=== PATIENT | male | born 1950 | race Caucasian/White ===

== ENCOUNTER 2023-09-05 15:14 | Emergency (ER) | payer OTHER, SELFPAY ==
[2023-09-05] VITALS (10 sets, daily range): BP systolic 168–199; BP diastolic 86–113
[2023-09-05 15:44] LABS: % Basophils 0.9 % (0-2); % Eosinophils 3.2 % (0-6); % Immature Granulocytes 0.3 % (0-0.5); % Lymphocytes 20.8 % (20.5-51.1); % Monocytes 6.1 % (1.7-9.3); % Neutrophils 68.7 % (42.2-75.2); Absolute Basophils 0.1 10^3/uL (0-0.2); Absolute Eosinophils 0.3 10^3/uL (0-0.7); Absolute Lymphocytes 2.1 10^3/uL (1.2-3.4); Absolute Monocytes 0.6 10^3/uL (0.1-0.6); Absolute Neutrophils 7.1 10^3/uL (1.4-6.5); Hematocrit 44.3 % (39.0-52.0); Hemoglobin 15.2 g/dL (13.0-18.0); Mean Corp Hgb Conc. 34.3 g/dL (33.0-37.0); Mean Corpuscular Hgb 30.3 pg (27.0-31.0); Mean Corpuscular Volume 88.4 fL (80.0-94.0); Mean Platelet Volume 9.5 fL (7.4-10.4); Nucleated Red Blood Cells % 0 % (-); Platelet Count 181 10^3/uL (130-400); Red Blood Cell Count 5.01 10^6/uL (4.70-6.10); Red Cell Dist. Width 12.5 % (11.5-14.5); White Blood Cell Count 10.3 10^3/uL (4.8-10.8)
[2023-09-05 15:58] LABS: ALT (SGPT) 17 U/L (0-50); AST (SGOT) 23 U/L (17-59); Albumin 4.2 g/dl (3.5-5.0); Alkaline Phosphatase 103 U/L (38-126); Blood Urea Nitrogen 34 mg/dl (9-20); Calcium 9.4 mg/dl (8.4-10.2); Carbon Dioxide 22 mmol/L (22-30); Chloride 109 mmol/L (98-107); Glucose 103 mg/dl (70-99); Potassium 4.4 mmol/L (3.5-5.1); Sodium 140 mmol/L (135-145); Total Bilirubin 0.7 mg/dl (0.2-1.3); Total Protein 6.9 g/dl (6.3-8.2); eGFR 57.65
[2023-09-05 16:09] LABS: Troponin I < 0.012 ng/ml
--- NOTE | 2023-09-05 16:09 | ED.GENMED ---
History of Present Illness
General
Chief Complaint: Blood Pressure Problem
Source: patient and family
Exam Limitations: none
Time Seen by Provider: 09/05/23 15:57
Nursing documentation reviewed up to this point in time: agreed with
History of Present Illness
History of Present Illness:
Healthy 73-year-old male presents with nausea vomiting pain behind the right eye was outside building some furniture around 8 AM developed symptoms went inside to sleep, had some nausea vomiting blood pressure was elevated previously told he had
hypertension then told he did not currently on meds, no arm or leg weakness no slurred speech, it is very hot today the patient states he was in the very long, no arm or leg weakness, states his vision is a bit blurry
Past History
Past History
ED Past Medical History: None and Other (Kidney stones)
ED Past Surgical History: None
Social History
Tobacco: Non-smoker
Alcohol: None
Drug: None
Personal:
Living: with family
Review of Systems
Review of Systems
All Other Systems: ROS reviewed and negative except as documented in HPI and ROS
EENT: Reports no symptoms
Respiratory: Reports no symptoms
Cardiac: Reports no symptoms
ABD/GI: Reports nausea and vomiting
Neurological: Reports other (Pain behind the right eye)
Phy Exam
Physical Exam
Physical Exam:
Physical Exam
General: no apparent distress, not acutely ill
Neck: No jaundice no photophobia
Heart: s1/s2 regular rate and rhythm, no murmur. equal radial pulses.
Lungs: no acute respiratory distress. clear bilaterally
Abdomen: Nontender
Neuro: alert and oriented. no focal neurological deficits normal [id number] muscle strength 5 out of 5 clear thought process clear speech
Skin: no rash
Psychiatric: well kept. interactive and cooperative
Extremities: no edema.
Course
Orders/Labs/Results
Orders:
Orders
09/05/23 15:34
CT Head W/o Iv Contrast Urgent
Comment:
Reason For Exam: hypertension
09/05/23 15:37
Complete Blood Count/With Diff Urgent
Comprehensive Metabolic Panel Urgent
Erythrocyte Sed Rate Urgent
Comment: ADD ON
Troponin I Urgent
09/05/23 16:03
0.9% Sodium Chloride 1000 ml [Nss] 1,000 ml IV BOLUS
Ondansetron Injectable [Zofran] 4 mg IV NOW STA
09/05/23 16:10
Add On- LAB Urgent
Tests Added?: esr
09/05/23 16:41
HydrALAZINE [Apresoline] 10 mg IV NOW STA
09/05/23 17:04
Tetracaine HCl [Tetracaine 0.5% Ophthalmic Solution] 1 drop .ROUTE .STK-MED ONE
09/05/23 17:38
Ketorolac [Toradol] 30 mg IV NOW STA
09/05/23 18:39
Acetaminophen [Tylenol] 650 mg PO NOW STA
Metoclopramide [Reglan] 10 mg IV NOW STA
09/05/23 19:45
Amlodipine [Norvasc] 5 mg PO NOW STA
Abnormal Lab Results
09/05/23
15:37
Absolute Neuts (auto) 7.1 H 10^3/uL
(1.4-6.5)
Chloride 109 H mmol/L
(98-107)
BUN 34 H mg/dl
(9-20)
Glucose 103 H mg/dl
(70-99)
09/05/23 15:37
09/05/23 15:37
Vital Signs
Initial and Last Documented VS:
Initial Vital Signs
Temp Pulse Resp BP Pulse Ox
98.9 F 66 18 189/113 97
09/05/23 15:16 09/05/23 15:16 09/05/23 15:16 09/05/23 15:16 09/05/23 15:16
Last Documented Vital Signs
Temp Pulse Resp BP Pulse Ox
98.9 F 63 10 182/103 98
09/05/23 15:16 09/05/23 18:30 09/05/23 18:30 09/05/23 18:30 09/05/23 18:30
MDM/Problems Addressed
Differential Diagnosis Includes:
Heat exhaustion, ocular migraine, acute glaucoma intracerebral hemorrhage migraine
MDM/Problems Addressed:
Pain behind the eye with nausea
*Critical Care Note
Total Time (30-74mins, 75-104mins- exclusive of procedures): Not Applicable
Update Note
Update Note:
Update, CT and labs noted will check intraocular pressure
IOP 16 on the left 18 on the right
5:40 PM patient feeling better blood pressure improved drinking some ice water still having some pain behind his will try some Toradol patient and daughter updated
6:30 PM did offer the patient admission states he like to go home with possible outpatient follow-up
7:45 PM patient resting comfortably blood pressure modestly elevated we will start with calcium channel arline medically cleared instructed to return to the ER for worsening symptoms he will stay out of the heat take a few days off, he does admit
that he was outside working for few hours
ED Attending Note
-
Portions of this chart may have been created with voice recognition software.� Occasional wrong word or��sound alike� substitutions may have occurred due to the inherent limitations of voice recognition software.
Discharge Plan
Departure
Patient Disposition: Home (Routine Discharge)
Date of Disposition: 09/05/23
Time of Disposition: 19:46
Patient with high blood pressure during this ER visit?: Yes
Condition: Good
Discharge Problem:
Vomiting, Headache
Instructions: High Blood Pressure (DC), Acute Nausea and Vomiting
Prescriptions:
New
metoclopramide HCl [Reglan] 10 mg tablet
10 mg PO Q8HPRN PRN (Reason: nausea and vomiting) Qty: 10 0RF
amlodipine [Norvasc] 5 mg tablet
5 mg PO DAILY Qty: 30 2RF
No Action
cyclobenzaprine 10 mg tablet
10 mg PO TID PRN (Reason: muscle spasm) Qty: 14 0RF
Referrals:
Will Houston I., DO [Family Provider] -
Interventions
Interventions:
*Risk Screen - Suicide Last Done: 09/05/23 16:06
*General Assessment Last Done: 09/05/23 16:06
*Neglect/Abuse Screening Last Done: 09/05/23 16:06
ED- Cardiac Assessment Last Done: 09/05/23 16:06
ED- Neurological Assessment Last Done: 09/05/23 16:06
ED- Pulmonary Assessment Last Done: 09/05/23 16:06
Discharge Date and Time
Print Language: LAO
[2023-09-05] MEDS: ZOFRAN 4 MG IV (16:15)
[2023-09-05] MEDS: NSS 1000 IV (16:15)
[2023-09-05 16:26] LABS: Erythrocyte Sed Rate 3 mm/hour (0-20)
[2023-09-05] MEDS: APRESOLINE 10 MG IV (16:46)
[2023-09-05] MEDS: TORADOL 30 MG IV (17:54)
[2023-09-05] MEDS: TYLENOL 650 MG PO (18:43)
[2023-09-05] MEDS: REGLAN 10 MG IV (18:43)
[2023-09-05] MEDS: NORVASC 5 MG PO (20:04)
[2023-09-05] MEDS: ZOFRAN ODT (ORALLY DISINTEGRATING) 4 MG PO (20:16)
== END 2023-09-05 20:25 | disposition home or self-care (01) ==
LOC: EMR 15:14
PROVIDERS: EMERGENCY PHYSICIAN Emergency Medicine; FAMILY PHYSICIAN Internal Medicine
DX: R11.2 Nausea with vomiting, unspecified (principal); R51.9 Headache, unspecified; I10 Essential (primary) hypertension; Z86.73 Personal history of transient ischemic attack (TIA), and cerebral infarction without residual deficits; Z87.442 Personal history of urinary calculi
CPT/HCPCS: 99284; 96374; 96375; 96361; 70450; 80053; 84484; 85025; 85652

== ENCOUNTER 2023-09-07 15:19 | Inpatient (IN) | payer OTHER, SELFPAY ==
[2023-09-07] VITALS (10 sets, daily range): BP systolic 154–197; BP diastolic 86–113; BMI 25.3
[2023-09-07 11:34] LABS: % Basophils 0.4 % (0-2); % Eosinophils 0.7 % (0-6); % Immature Granulocytes 0.3 % (0-0.5); % Lymphocytes 12.9 % (20.5-51.1); % Monocytes 6.4 % (1.7-9.3); % Neutrophils 79.3 % (42.2-75.2); Absolute Basophils 0.1 10^3/uL (0-0.2); Absolute Eosinophils 0.1 10^3/uL (0-0.7); Absolute Lymphocytes 1.8 10^3/uL (1.2-3.4); Absolute Monocytes 0.9 10^3/uL (0.1-0.6); Absolute Neutrophils 10.8 10^3/uL (1.4-6.5); Hematocrit 48.8 % (39.0-52.0); Hemoglobin 16.6 g/dL (13.0-18.0); Mean Corpuscular Hgb 30.2 pg (27.0-31.0); Mean Corpuscular Volume 88.7 fL (80.0-94.0); Mean Platelet Volume 9.4 fL (7.4-10.4); Nucleated Red Blood Cells % 0 % (-); Platelet Count 202 10^3/uL (130-400); Red Cell Dist. Width 12.2 % (11.5-14.5); White Blood Cell Count 13.6 10^3/uL (4.8-10.8)
[2023-09-07 11:49] LABS: ALT (SGPT) 18 U/L (0-50); AST (SGOT) 28 U/L (17-59); Albumin 4.7 g/dl (3.5-5.0); Alkaline Phosphatase 108 U/L (38-126); Blood Urea Nitrogen 21 mg/dl (9-20); Carbon Dioxide 22 mmol/L (22-30); Chloride 104 mmol/L (98-107); Glucose 102 mg/dl (70-99); Potassium 4.1 mmol/L (3.5-5.1); Sodium 138 mmol/L (135-145); Total Bilirubin 1.2 mg/dl (0.2-1.3); Total Protein 7.4 g/dl (6.3-8.2); eGFR > 60.00
--- NOTE | 2023-09-07 11:55 | ED.GENMED ---
History of Present Illness
General
Chief Complaint: Blood Pressure Problem
Source: patient
Exam Limitations: none
Time Seen by Provider: 09/07/23 11:44
Nursing documentation reviewed up to this point in time: agreed with
History of Present Illness
History of Present Illness:
Patient presents to ED secondary to persistent right-sided headache, along with dizziness, nausea/vomiting/diarrhea, as well as peripheral blurriness, as well as difficulty walking over the past 3 days. Patient was evaluated in ED at onset of his
symptoms, and was discharged home with a blood pressure medication, as he was noted to have significant elevated blood pressure. However, since being home, patient states that his symptoms have persisted. Secondary to symptoms, he has not been
able to keep anything down over the past 24 hours. Denies loss of sensation or weakness. Denies difficulty with speech. Denies coughing. Denies sore throat. Denies nasal congestion. Of note, patient and his spouse went out to dinner the night
before, where they both had lobster as part of your dinner. Patient and spouse is currently also experiencing vomiting and diarrhea since then.
Past History
Past History
ED Past Medical History: None and Other (Kidney stones)
ED Past Surgical History: None
Social History
Tobacco: Non-smoker
Alcohol: None
Drug: None
Personal:
Living: with family
Review of Systems
Review of Systems
Allergies reviewed?: Yes
All Other Systems: ROS reviewed and negative except as documented in HPI and ROS
Constitutional: Reports no symptoms
EENT: Reports no symptoms
Respiratory: Reports no symptoms
ABD/GI: Reports nausea, vomiting and diarrhea; Denies abdominal pain
: Reports no symptoms
Musculoskeletal: Reports no symptoms
Skin: Reports no symptoms
Neurological: Reports dizzy, headache and weakness
Phy Exam
Physical Exam
Physical Exam:
Physical Exam
General: mild distress, not acutely ill. afebrile
Head: nc/at. eomi
Neck: supple. no meningeal signs.
Heart: s1/s2 regular rate and rhythm, no murmur. equal radial pulses.
Lungs: no acute respiratory distress. clear bilaterally
Abdomen: normal bowel sounds. not tender.
Neuro: alert and oriented. no focal neurological deficits. normal speech.
Skin: no rash
Psychiatric: well kept. interactive and cooperative
Extremities: no edema. no calf tenderness.
Course
Orders/Labs/Results
Orders:
Orders
09/07/23 11:10
Electrocardiogram (*1) Urgent
Reason for Study: Hypertension, Benign
EKG- Treatment ONCE
09/07/23 11:21
C-Reactive Protein Urgent
Comment: ADD ON
CMP [Comprehensive Metabolic Panel] Urgent
Complete Blood Count/With Diff Urgent
Erythrocyte Sed Rate Urgent
Comment: ADD ON
09/07/23 14:07
Add On- LAB Urgent
Tests Added?: ESR, CRP
0.9% Sodium Chloride 500 ml [Nss] 500 ml IV BOLUS
Acetaminophen [Tylenol] 1,000 mg PO NOW STA
Ondansetron Injectable [Zofran] 4 mg IV NOW STA
09/07/23 14:08
NEUROLOGY CONSULT Urgent
Consulting Provider: Brendan Penn
Was physician already notified: Yes
Reason for consult: headache, dizziness
09/07/23 14:13
COVID-19 Antigen Urgent
Source: Nasal Swab
Influenza A+B Rapid Molecular Urgent
FLORIN Source: Nasal Swab
Specimen Description:
09/07/23 14:16
Stool Culture Urgent
FLORIN Source: Feces/Stool
Specimen Description:
09/07/23 14:25
Add On- LAB Urgent
Tests Added?: esr, crp
09/07/23 15:04
Labetalol HCl [Trandate] 10 mg IV NOW STA
09/07/23 15:11
Admit/Transfer Patient As Directed
Co-Sign Provider:
Level of Care: Inpatient admission
Assign to:: Telemetry
Physician / Group: Hospitalist
Diagnosis: Headache
Reason for Telemetry: Medication for Arrhythmia
Date to Stop Telemetry: 09/09/23
Time to Stop Telemetry: 11:00
Reason for Hospitalization: .
Expected length of stay greater than two midnights?: Yes
ELOS- Estimated Length of Stay in days: 3
I certify the patient meets the requirements for IP care: Yes
09/07/23 17:53
DX Deep Vein Thrombosis Video Routine
09/07/23 20:00
Heparin 5,000 units SC Q12
Abnormal Lab Results
09/07/23
11:21
WBC 13.6 H 10^3/uL
(4.8-10.8)
Absolute Neuts (auto) 10.8 H 10^3/uL
(1.4-6.5)
Absolute Monos (auto) 0.9 H 10^3/uL
(0.1-0.6)
Neutrophils % 79.3 H %
(42.2-75.2)
Lymphocytes % 12.9 L %
(20.5-51.1)
BUN 21 H mg/dl
(9-20)
Glucose 102 H mg/dl
(70-99)
09/07/23 11:21
09/07/23 11:21
Vital Signs
Initial and Last Documented VS:
Initial Vital Signs
Temp Pulse Resp BP Pulse Ox
98.1 F 78 18 175/107 97
09/07/23 11:06 09/07/23 11:06 09/07/23 11:06 09/07/23 11:06 09/07/23 11:06
Last Documented Vital Signs
Temp Pulse Resp BP Pulse Ox
98.4 F 74 20 154/88 96
09/07/23 19:30 09/07/23 19:56 09/07/23 19:30 09/07/23 19:56 09/07/23 19:30
MDM/Problems Addressed
MDM/Problems Addressed:
Patient appears quite uncomfortable with elevated blood pressure. History and exam concerning for potential hypertensive urgency/emergency, exacerbated by ongoing potential viral illness versus food reaction, resulting in dehydration. Secondary to
nonspecific neurological symptoms, patient evaluated in ED by Dr. Penn, neurology, who agrees that patient will need further treatment, including potential MRI brain as an inpatient, if symptoms persist.
*EKG
Interpreted by ED Provider?: Yes
EKG Intrepretation Date: 09/07/23
Heart Rate: 62
Rate: normal
Rhythm: sinus
[place]: left axis deviation
*Critical Care Note
Total Time (30-74mins, 75-104mins- exclusive of procedures): Not Applicable
ED Attending Note
-
Portions of this chart may have been created with voice recognition software.� Occasional wrong word or��sound alike� substitutions may have occurred due to the inherent limitations of voice recognition software.
Discharge Plan
Departure
Patient Disposition: Admit
Date of Disposition: 09/07/23
Time of Disposition: 14:52
Admit to: Telemetry
Presentation/result/management discussed w/ accepting MD/DO: Hospitalist
Discharge Problem:
Hypertensive urgency, Headache, Dizziness
Interventions
Interventions:
*Risk Screen - Suicide Last Done: 09/07/23 18:00
*General Assessment Last Done: 09/07/23 11:06
*Neglect/Abuse Screening Last Done: 09/07/23 12:33
ED- Fall Risk Assessment Last Done: 09/07/23 17:39
*ED COVID-19 Vaccine History Last Done: 09/07/23 18:00
*Nursing Disposition Last Done: 09/07/23 17:39
ED- Cardiac Assessment Last Done: 09/07/23 12:33
ED- Neurological Assessment Last Done: 09/07/23 12:33
ED- Pulmonary Assessment Last Done: 09/07/23 12:33
Discharge Date and Time
Discharge Date/Time: 09/07/23 17:50
[2023-09-07] MEDS: ZOFRAN 4 MG IV (14:14)
[2023-09-07] MEDS: TYLENOL 1000 MG PO ×2 (14:14→22:56)
[2023-09-07] MEDS: NSS 500 IV (14:19)
[2023-09-07 14:43] LABS: Erythrocyte Sed Rate 11 mm/hour (0-20)
[2023-09-07 14:51] LABS: COVID-19 Antigen Negative (Negative)
[2023-09-07 14:55] LABS: C-Reactive Protein < 5.00 mg/L (0.0-10.00)
--- NOTE | 2023-09-07 15:11 | HPS.HSE ---
Family Physician
-
Family Physician: Will Houston
Chief Complaint
-
Headache for a few days duration
History of Present Illness
73 years old male came in from home. Patient is accompanied by his daughter. Patient complains of headache mostly right-sided with blurred vision, ambulatory dysfunction nausea and vomiting. He was working outside when he felt near syncopal
feeling with blurred vision. He came to the ER 2 days ago and was given amlodipine treatment. He was taking that but his blood pressure on arrival was 182- 193/102-113 despite receiving intravenous labetalol.
Patient had mild leukocytosis. No fevers. No confusion. Patient was diagnosed with hypertension few years ago. He was on medication but caused a drop in his blood pressure and he stopped it.
Medical History
Past Medical History
Past Medical History: Reports Other (Hypertension, kidney stone)
Past Surgical History: Reports Other (No recent major surgery)
Social History
Tobacco: Non-smoker
Alcohol: None
Drug: None
Personal:
Living: With Family
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
Family History
Family History: Hypertension
Allergies / Home Medications
Allergies reflects when Allergies were last updated in [facility].
Home Medications with original date entered in [facility]
Allergy/Medication List:
Allergies
Allergy/AdvReac Type Severity Reaction Status Date / Time
NKA - No Known Allergies Allergy Unknown Uncoded 09/07/23 11:10
Home Medications
amlodipine 5 mg tablet (Norvasc) 5 mg PO DAILY #30 tabs 09/05/23
metoclopramide HCl 10 mg tablet (Reglan) 10 mg PO Q8HPRN PRN nausea and vomiting #10 tabs 09/05/23
diphenhydramine 25 mg-acetaminophen 500 mg tablet (Tylenol PM Extra Strength) 1 tab PO HSPRN PRN mild pain 09/07/23
ibuprofen 200 mg tablet 200 mg PO DAILYPRN PRN mild pain 09/07/23
Review of Systems
-
History Source: Patient
A 12 point ROS was completed and negative except as noted: Yes
EENT: Denies Sore Throat
Respiratory: Denies Cough
Cardiac: Denies Chest Pain
Abdomen/GI: Reports Nausea and Vomiting
: Denies Dysuria or Difficulty Voiding
Musculoskeletal: Denies Joint Pain or Joint Swelling
Neurological: Reports Dizzy and Headache; Denies Numbness
Endocrine: Denies Temp Intolerance
Hematologic/Lymphatic: Denies Bruising
Psych: Denies Panic Disorder
Physical Exam
Vital Signs
Vital Signs
Temp Pulse Resp BP Pulse Ox
98.1 F 83 14 184/102 98
09/07/23 11:06 09/07/23 15:00 09/07/23 15:00 09/07/23 15:01 09/07/23 15:00
Physical Exam
General: Well Nourished and Pain
HEENT: Moist mucous membranes and Atraumatic
Respiratory: Clear; No Wheezes
Cardiac: S1/S2 and Regular Rhythm; No Murmur, Peripheral Edema or Carotid Bruits
GI: Soft and Non Tender
Genito-urinary: No costovertebral tender
Musculoskeletal: No Clubbing, No Cyanosis and No Edema
Skin: Warm and Dry
Neuro: AO x 3 and Nonfocal/grossly intact; No Slurred Speech, Facial Droop or Tremors
Psych: Calm and Intact Judgment/Insight
Laboratory Results
-
09/07/23 11:21
09/07/23 11:21
Laboratory Results
Total Bilirubin 1.2 mg/dl (0.2-1.3) 09/07/23 11:21
AST 28 U/L (17-59) 09/07/23 11:21
ALT 18 U/L (0-50) 09/07/23 11:21
Alkaline Phosphatase 108 U/L (38-126) 09/07/23 11:21
Impression/Plan
-
73 years old male who presented with persistent headache and elevated blood pressure
Hypertensive emergency
Patient presented with headache, blurred vision, ambulatory dysfunction with gastrointestinal symptoms despite taking oral medication amlodipine that was given to the patient from recent ER visit.
History of hypertension, currently not on regular medications.
Admit the patient to the intensive care unit
Start the patient on intravenous nicardipine to slowly lower his blood pressure
On physical examination, no heart murmur, no carotid or renal bruit. No peripheral edema. No acute kidney injury
Will do echocardiogram
Will gradually introduce oral antihypertensive medications in the next 24-hour
Discussed with ICU and neurology doctors, appreciate input
# Headache
Likely related to uncontrolled hypertension. No evidence of active infection, although it remains a possibility specifically if no improvement and worsening clinical course/developing fever
Will avoid nonsteroidal anti-inflammatory medications because of high blood pressure
Will add as needed Tylenol, low-dose morphine
#History of nausea vomiting. Will do
As needed Zofran/Compazine
# Leukocytosis, possible reactive. Normal ESR and CRP. No fevers
Will monitor.
# DVT prophylaxis
Total time spent to see the patient on the floor, examine the patient, review data and lab results, discuss treatment plan with patient, ER doctor, nursing staff around 75 minutes
[2023-09-07] MEDS: TRANDATE 10 MG IV (15:14)
--- NOTE | 2023-09-07 16:16 | CON.INTV ---
Addendum entered and electronically signed by Coni Vora DO 09/08/23 07:14:
Transferred to tele following improvement of BP, no need for nicardipine
Outpatient sleep referral
We will sign off at this time, please call with questions
Original Note:
Consultation
Consultation Request
Date/Time Consultation Requested: 09/07/23
Date/Time Consultation Performed: 09/07/23
Performing Provider: Diony
Reason for Consultation: ICU
Medical History
-
History of Present Illness:
Patient is a 73-year-old male with previous history of hypertension, chronic kidney disease presenting to the ER with headache, blurred vision, dizziness, nausea and vomiting. 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 He had previously been seen in the ER 2 days prior for hypertensive urgency, blood pressure systolic greater than 180. He declined admission at that time. He now presents with similar findings, blood pressure on arrival noted to be
197/113 (peak). Given IV labetalol in ER with plan to start nicardipine drip with admission to ICU. His current blood pressure on my evaluation is 150 systolic.
Past Medical History
Past Medical History: HTN
Past Surgical History: Other
Social History
Tobacco: Non-smoker
Alcohol: None
Drug: None
Family History
Family History: Reviewed & Not Pertinent
Allergies / Home Medications
Allergies
Allergy/AdvReac Type Severity Reaction Status Date / Time
NKA - No Known Allergies Allergy Unknown Uncoded 09/07/23 11:10
Home Medications
�Medication �Instructions �Recorded �Confirmed �Last Taken �Type
amlodipine 5 mg tablet (Norvasc) 5 mg PO DAILY #30 tabs 09/05/23 09/07/23 09/07/23 Rx
metoclopramide HCl 10 mg tablet 10 mg PO Q8HPRN PRN nausea and 09/05/23 09/07/23 09/07/23 Rx
(Reglan) vomiting #10 tabs
diphenhydramine 25 1 tab PO HSPRN PRN mild pain 09/07/23 09/07/23 09/06/23 History
mg-acetaminophen 500 mg tablet
(Tylenol PM Extra Strength)
ibuprofen 200 mg tablet 200 mg PO DAILYPRN PRN mild pain 09/07/23 09/07/23 2 Days Ago History
~09/05/23
Review of Systems
-
History Source: Patient
All other systems: Negative unless noted
Vitals / Labs / Diagnostic Testing
Vital Signs
Temp Pulse Resp BP Pulse Ox
98.1 F 71 17 156/86 97
09/07/23 11:06 09/07/23 16:00 09/07/23 16:00 09/07/23 16:06 09/07/23 16:00
Lab Data
09/07/23 11:21
09/07/23 11:21
Microbiology
09/07/23 14:13 Nasal Swab Influenza Types A & B (PABLO) - Final
Negative for Influenza A & B, NAAT
Negative results must be combined with clinical observations
and patient history.
Nucleic Acid Amplification test (NAAT)performed on the
[employer] NOW platform.
Diagnostic Testing:
Physical Exam
-
HEENT: Normocephalic, Anicteric and Moist Mucous Membranes
Cardiovascular: S1/S2 and Regular Rhythm
Respiratory: Clear and Non-Labored Respirations
GI: Soft, Non Distended and Non Tender
Neurology: Awake, Alert, Oriented, AO x 3 and No Motor Deficits
Skin: Warm, Dry and Good Color
General: Comfortable and Other (NAD)
Assessment
-
Patient is a 73-year-old male with previous history of hypertension, chronic kidney disease presenting to the ER with headache, blurred vision, dizziness, nausea and vomiting. 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 He had previously been seen in the ER 2 days prior for hypertensive urgency, blood pressure systolic greater than 180. He declined admission at that time. He now presents with similar findings, blood pressure on arrival noted to be
197/113 (peak). Given IV labetalol in ER with plan to start nicardipine drip. His current blood pressure on my evaluation is 150 systolic.
Hypertensive emergency
NICOLE/dizziness/vomiting
+snoring, likely with JOYCELYN
Mild leukocytosis
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
Essential (primary) hypertension
Stage 3a chronic kidney disease
Cancer, skin (2005)
Delacruz's Esophagus (1999)
H/o kidney stones s/p Lithotripsy/stent
Back surgery(2004)
Hernia repair(2005)
Mohs L side of head 05/07
Calcified R hilar nodes, likely chronic granulomatous disease
Possible ILD
Plan
No current signs of metabolic encephalopathy or MS changes/following commands
Denies pain at this time.
Pain/sedation: PRN
RASS goals: [address] 09/05/23, old CVA noted
Hemodynamically stable, not requiring pressors.
Cardiac history reviewed--poorly controlled HTN
Can given another dose of IV push and resume home meds
Nicardipine if needed
No prior ECHO for review, has not seen cards in past
Can consult for eval
Oxygen needs: stable on RA
Prior history of lung disease: none, lifelong nonsmoker
Does have risk for underlying JOYCELYN, +snoring/apneas, would need outpatient sleep study
Supplemental O2 as indicated to maintain sats > 89%
No chest imaging in past, old CT AP in past showing possible ILD
Will obtain baseline CXR to evaluate
Advance diet as tolerated
Youth Teacher recommendations
Aspiration precautions, HOB > 30 degrees
Speech therapy eval can be considered if at elevated risk
Resume home GERD meds, history of barretts
Creat at baseline, CKD history
BL creat (1.1-1.3)
Void trials
Follow urine output, critical I/Os
Replete electrolytes as needed
No signs/symptoms suspicious for infectious etiology at this time
Observe off antibiotics for now
Follow fever trend, WBC count
CBC stable, no signs of bleeding or coagulopathy.
DVT prophylaxis as assessed based on risk, including mechanical SCDs
Can transfuse if indicated for Hb <7, plt < 10
INR WNL
No prior h/o diabetes or thyroid disease
Monitor accuchecks PRN/SS coverage if needed
If doing well without need for gtt, can transfer to floors.
Discussed case with care team
Can FU with pulmonary/sleep outpatient for CXR findings/JOYCELYN testing
Diagnostic Data
Chest X-Ray:
CT Scan: HEAD 09/05/23- No acute intracranial abnormalities.
Probable tiny old lacunar infarct at the periphery of the left basal ganglia.
Findings again seen compatible with diffuse cortical atrophy with nonspecific white matter changes as described above.
AP 02/18/13- Calcified lymph nodes are visible in the right hilum. There are blebs at the right lower lung region. Minimal honeycombing is visible at the posterior bases.
Old granulomatous disease is visible in the liver and spleen. The gallbladder, adrenals and pancreas are unremarkable. There is a 2-cm diameter water density lesion of the upper right kidney consistent with a cyst. On the left there are 3
separate nephroliths including an upper pole stone of 3 mm and lower pole stones of 2 and 9 mm. There is also mild left hydronephrosis and there 1 or 2 small presumed cysts. There is a stone in the proximal left ureter just below the UPJ or at the
UPJ measuring 10 mm. There is no abdominal ascites. There is no significant perinephric fat stranding. The bowel is not dilated.
Echo:
PFT's:
Reports and relevant images were personally reviewed.
-----
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
--- NOTE | 2023-09-07 16:36 | W.PN.UPDATE ---
Update Note
Progress Note Update
Patient seems to be doing better after receiving IV labetalol with systolic blood pressure around 156
Will change his admission to telemetry floor and continue with oral blood pressure medication and add as needed IV hydralazine
Discussed with ICU doctor. Agreed to rule out obstructive sleep apnea in outpatient setting
End
--- NOTE | 2023-09-07 17:33 | CON.NEURO4 ---
Consultation - Neurology 4
-
CONSULTING PHYSICIAN: Brendan Penn MD(Neurology)
REFERRING PHYSICIAN: Hospitalist
DICTATED BY: Brendan Penn MD
DATE/TIME OF REQUEST: 09/07/2023
DATE/TIME OF CONSULTATION: 09/07/2023 1400
Reason for Consultation: Headache
History of Present Illness:
This is a 73 year old right handed male who has presented to the hospital with chief complaint of headaches. He gives a h/o HTN who had not been on medication and was in his USOH till Wednesday. Following dinner on Wednesday both the pat and his
had nausea and diarrhoea. Pat symptoms continued to persist and he came in to the ER on Wednesday. His BP was elevated and he was offered admission which he refused. He went home on antihypertensives.
CT head was obtained which showed small vessel disease.. There was no improvement of his headaches dizziness blurred vision. he was intermittently nauseated. And he was bedbound. Given persistence of his symptoms his daughter brought him back to the
ED. His BP remains elevated at 190/108
No focal weakness or numbness of face or extremities. No slurred speech. No loss of balance. He is light headed
Past Medical History: HTN
Surgical History: Hernia repair. LB surgery
Family History: [place]
Social History: Lives at home with his . Does not smoke or use alcohol
Allergies: NKA
Home Medications: Norvasc
Review of Symptoms:
Patient denies any fever, chest pain, shortness of breath, GI symptoms.
�Per the HPI.�All systems are reviewed negative except above.
�
Vital Signs:
Temp Pulse Resp BP Pulse Ox
36.7 C 71 17 156/86 97
09/07/23 11:06 09/07/23 16:00 09/07/23 16:00 09/07/23 16:06 09/07/23 16:00
Physical Exam:
The patient is afebrile, heart sounds S1 and S2 are (regular / irregular), and chest is clear to auscultation bilaterally.
Neurologic Examination:
The patient is awake, alert and oriented x 3. He is able to follow commands and answer questions appropriately. There is no aphasia or dysarthria. On cranial nerve assessment, pupils are 3 mm bilateral, round and reactive to light and
accommodation. Visual childers are full. Extraocular movements are intact. Facial sensations are intact and bilaterally symmetrical, there is no facial asymmetry. Hearing is intact bilaterally to normal conversation volume. Tongue palate and uvula
are midline. Sternocleidomastoid strengths are full bilaterally. Motor strengths are 5/5 bilateral upper and lower extremities on medical research [place] scale. There is no drift or involuntary movement noted. Deep tendon reflexes are 2+ bilateral
upper and lower extremities and Babinski is absent bilaterally. Sensations of pain, touch, temperature and vibration are intact and bilaterally symmetrical. There was no extinction noted on double simultaneous stimulation. Coordination is intact by
finger to nose bilaterally.
Lab Results: 09/07/23 11:21
09/07/23 11:21
Sodium 138 mmol/L (135-145) 09/07/23 11:21
Potassium 4.1 mmol/L (3.5-5.1) 09/07/23 11:21
BUN 21 mg/dl (9-20) H 09/07/23 11:21
Glucose 102 mg/dl (70-99) H 09/07/23 11:21
Calcium 10.0 mg/dl (8.4-10.2) 09/07/23 11:21
Neuro Imaging: CT head: Atrophy. Small vessel disease. Normal ventricles
Impression:
Mr. SUBHASH CRUZ is a 73 year old M who has presented to the hospital complaining of headaches dizziness with uncontrolled HTN and normal neuro exam.
Recommendations:
1. BP management
2. MRI head
3. ESR
4. Maintain IV hydration
Discussed patient care with: ER and hospitalist
Total Time Spent with Patient (in minutes): 30
Vital Signs and Labs
-
Vital Signs and Labs:
Vital Signs
Temp Pulse Resp BP Pulse Ox
36.7 C 71 17 156/86 97
09/07/23 11:06 09/07/23 16:00 09/07/23 16:00 09/07/23 16:06 09/07/23 16:00
Lab Results
09/07/23 11:21
09/07/23 11:21
Sodium 138 mmol/L (135-145) 09/07/23 11:21
Potassium 4.1 mmol/L (3.5-5.1) 09/07/23 11:21
BUN 21 mg/dl (9-20) H 09/07/23 11:21
Glucose 102 mg/dl (70-99) H 09/07/23 11:21
Calcium 10.0 mg/dl (8.4-10.2) 09/07/23 11:21
Allergies
-
Allergies
Allergy/AdvReac Type Severity Reaction Status Date / Time
NKA - No Known Allergies Allergy Unknown Uncoded 09/07/23 11:10
Medications
-
Home Medications
�Medication �Instructions �Recorded
amlodipine 5 mg tablet (Norvasc) 5 mg PO DAILY #30 tabs 09/05/23
metoclopramide HCl 10 mg tablet 10 mg PO Q8HPRN PRN nausea and 09/05/23
(Reglan) vomiting #10 tabs
diphenhydramine 25 1 tab PO HSPRN PRN mild pain 09/07/23
mg-acetaminophen 500 mg tablet
(Tylenol PM Extra Strength)
ibuprofen 200 mg tablet 200 mg PO DAILYPRN PRN mild pain 09/07/23
[2023-09-07] MEDS: APRESOLINE 5 MG IV (18:18)
[2023-09-07] MEDS: ZESTRIL 10 MG PO (19:56)
[2023-09-07] MEDS: HEPARIN 5000 UNITS SC (19:56)
[2023-09-08] VITALS (7 sets, daily range): BP systolic 92–152; BP diastolic 55–94
[2023-09-08] MEDS: COMPAZINE 10 MG IV (02:24)
[2023-09-08] MEDS: ZESTRIL 10 MG PO ×2 (08:37→20:52)
[2023-09-08] MEDS: PROCARDIA XL (EXTENDED RELEASE) 30 MG PO (08:38)
[2023-09-08] MEDS: HEPARIN 5000 UNITS SC ×2 (08:40→20:52)
[2023-09-08] MEDS: ULTRAM 25 MG PO (08:55)
--- NOTE | 2023-09-08 09:44 | W.PN.HOSP.TC ---
Today's Communication/Plan
-
Treat acute gastroenteritis with mild IVF, supportive care. Stool studies
c/w oral BP meds
MRI brain
Echo of heart
Magnesium IV to treat headache
Assessment / Plan
Assessment / Plan
Physical Exam
General: Well Nourished and Pain
HEENT: Moist mucous membranes and Atraumatic
Respiratory: Clear; No Wheezes
Cardiac: S1/S2 and Regular Rhythm; No Murmur, Peripheral Edema or Carotid Bruits
GI: Soft and Non Tender
Genito-urinary: No costovertebral tender
Musculoskeletal: No Clubbing, No Cyanosis and No Edema
Skin: Warm and Dry
Neuro: AO x 3 and Nonfocal/grossly intact; No Slurred Speech, Facial Droop or Tremors
Psych: Calm and Intact Judgment/Insight
73 years old male who presented with persistent headache and elevated blood pressure
# Hypertensive emergency, resolving
Hx of HTN and was on TX but stopped due to low BP
Better controlled BP
Started on Lisinopril 10 mg BID and nifedipine
Agree to rule out JOYCELYN in OP setting
Echocardiogram
Normal Renal function
No carotid or renal bruit
# Headache
I think it is related to ongoing gastroenteritis.
Still persistent despite controlling his blood pressure, frontal and both sides. No blurred vision. No evidence of active infection. No fevers.
Will avoid nonsteroidal anti-inflammatory medications because of high blood pressure
c/w as needed Tylenol, low-dose morphine
Will give Magnesium 2 gm IV
#History of nausea vomiting. Will do
As needed Zofran/Compazine
# Acute diarrhea/ acute gastroenteritis, , possibly related to recent eating sea food. Both pt and experienced N/V and diarrhea
Stool testing
c/w Mild IVF and supportive care
# Leukocytosis, possible reactive. Normal ESR and CRP. No fevers
CBC in AM
# DVT prophylaxis
Total time spent to see the patient on the floor, examine the patient, review data and lab results, discuss treatment plan with patient, daughter ( Maria T), nursing staff around 57 minutes
Anticipated Discharge: 24 - 48 hours
Subjective/Interval History
-
Date of Service: September 08, 2023
Had same headache
No chest pain
No sob
Objective Data
-
Vital Signs:
Vital Signs
Temp Pulse Resp BP Pulse Ox
97.9 F 66 16 151/87 94
09/08/23 07:00 09/08/23 07:00 09/08/23 07:00 09/08/23 08:37 09/08/23 07:00
--- NOTE | 2023-09-08 10:24 | W.PN.NEURO.1 ---
Addendum entered and electronically signed by Brendan Penn MD 09/08/23 15:23:
I reviewed the progress note and agree with the findings and plan
Original Note:
Today's Communication / Plan
-
.
Neuro Assessment/Plan
Assessment
This is a 73-year-old male who presented to on 09/07/23 with report of headache, diarrhea, vomiting, and blurry vision. BP was elevated up to 197/113.
-CT head 09/05/23: No acute intracranial abnormalities. Probable tiny old lacunar infarct at the periphery of the left basal ganglia. Findings again seen compatible with diffuse cortical atrophy with nonspecific white matter changes as described
above.
I. Hypertensive urgency
II. Gastroenteritis
III. Low concern for acute stroke but possible.
IV. CT head suggestive of old tiny left basal ganglia lacunar infarct.
Plan
-MRI brain noncontrast pending.
-Slow lowering of blood pressure to goal normotension.
-Continue Tylenol and prochlorperazine PRN headache.
-Adequate PO fluids encouraged, IV hydration as needed.
-DVT prophylaxis.
-Will follow pending results.
Subjective/Objective
Subjective Data
Date of Service: September 08, 2023
Patient reports poor sleep overnight and ongoing bitemporal throbbing headache associated with mild peripheral vision blurring that was relieved somewhat last evening but has returned today, he rates it a 7/10. He also reports two episodes of
diarrhea today. He denies any dizziness, diplopia, speech/swallow difficulty, numbness, weakness, chest pain, palpitations, and shortness of breath.
Objective Data
Vital Signs
Temp Pulse Resp BP Pulse Ox
97.9 F 66 16 151/87 94
09/08/23 07:00 09/08/23 07:00 09/08/23 07:00 09/08/23 08:37 09/08/23 07:00
Lab Results
09/07/23 11:21
09/07/23 11:21
Sodium 138 mmol/L (135-145) 09/07/23 11:21
Potassium 4.1 mmol/L (3.5-5.1) 09/07/23 11:21
BUN 21 mg/dl (9-20) H 09/07/23 11:21
Glucose 102 mg/dl (70-99) H 09/07/23 11:21
Calcium 10.0 mg/dl (8.4-10.2) 09/07/23 11:21
Patient Allergies
No Known Allergies Allergy (Unverified 09/07/23 17:55)
Review of Systems
-
History Source: Patient
EENT: Blurry Vision; Negative Decreased Vision or Swallowing Difficulty
Respiratory: Negative Cough or Trouble Breathing
Cardiac: Negative Chest Pain or Palpitations
Abdomen/GI: Nausea and Diarrhea
Neuro: Headache; Negative Dizzy, Weakness, Numbness, Ataxia, Tremors or Speech Problem
Physical Exam
-
General: Well Developed and Well Nourished
Eyes: No Ptosis and PERRLA
HEENT: Normocephalic and Atraumatic
Neck: Full Range of Motion
Respiratory: No Dyspnea
GI: Non-distended
Psych: Unremarkable
Extended Neurological Exam
Mood & Affect: Mood Unremarkable and Affect Unremarkable
Attention Span & Concentration: Awake, Alert, Interactive and No Difficulty with 2 Step Request
Memory: Unremarkable (AAOx3) and Able to Recall
Tremor: Hand Tremor Absent and Head Tremor Absent
Involuntary Movement: None
Speech: Quality Unremarkable, Quantity Unremarkable and Rate of Production Unremarkable
Cranial Nerve II: Left Eye: Pupillary Reactivity Unremarkable, Pupillary Size Unremarkable and Visual Whitley Intact
Cranial Nerve II: Right Eye: Pupillary Reactivity Unremarkable, Pupillary Size Unremarkable and Visual Whitley Intact
Cranial Nerves III, IV, : Extraocular Movement: Extraocular Movement Full in all Directions
Cranial Nerve V: Facial Sensation: Intact to Light Touch
Cranial Nerve VII: Facial Symmetry: Normal Facial Symmetry
Cranial Nerve VIII: Hearing: Unremarkable Hearing to Normal Conversational Volume
Cranial Nerves IX, X: Palate Movement: Palate Elevation Symmetric
Cranial Nerve XI: Shoulder Shrug: Unremarkable
Cranial Nerve XII: Tongue Protusion: Midline
Muscle Strength, Overall: Full Throughout
Muscle Bulk & Tone: Bulk Unremarkable and Tone Unremarkable
Pronator Drift: No Drift in Upper Extremities and No Drift in Lower Extremities
Touch Sensation: Double Simultaneous Stimulation Unremarkable
Coordination: Eujtny-cycu-hptegh Testing Unremarkable
Babinski Sign: Absent Bilaterally
Gait & Station: Up from Seated Without Problem
Data Reviewed
-
CT Head: Report Reviewed and Image Reviewed
MRI Head: Pending
Echocardiogram: Pending
Lipid Profile: Pending
HgbA1C: Pending
Reviewed with: Physician and Patient
Medications
-
Active Medications
Generic Name Dose Route Start Last Admin
Trade Name Freq PRN Reason Stop Dose Admin
Acetaminophen 1,000 mg 09/07/23 17:53 09/07/23 22:56
Acetaminophen 500 Mg Tablet PO 10/05/23 17:52 1,000 mg
Q6HPRN PRN Administration
mild to mod pain
Heparin Sodium 5,000 units 09/07/23 20:00 09/08/23 08:40
Heparin 5,000 Units/Ml 1 Ml Vial SC 10/05/23 19:59 5,000 units
Q12 NATACHA Administration
Hydralazine HCl 5 mg 09/07/23 17:53 09/07/23 18:18
Hydralazine 20 Mg/Ml Vial IV 10/05/23 17:52 5 mg
Q4HPRN PRN Administration
sbp more than 160
Sodium Chloride 1,000 mls @ 150 mls/hr 09/08/23 10:05
Nss IV 09/08/23 16:44
ONCE ONE
Magnesium Sulfate 2 gram in 50 mls @ 25 mls/hr 09/08/23 10:05
Magnesium Sulfate IV 09/08/23 12:04
NOW STA
Lisinopril 10 mg 09/07/23 20:00 09/08/23 08:37
Lisinopril 10 Mg Tablet PO 10/05/23 19:59 10 mg
BID NATACHA Administration
Lorazepam 1 mg 09/08/23 08:59 09/08/23 10:33
Ativan 1 Mg Dose IV 10/06/23 08:58 1 mg
ONCE PRN Administration
MRI STUDY
Morphine Sulfate 4 mg 09/07/23 17:53
Morphine 4 Mg/Ml Injection IV 09/21/23 17:52
Q4HPRN PRN
severe pain,cant take oral
Nifedipine 30 mg 09/08/23 08:00 09/08/23 08:38
Nifedipine 30 Mg Extended Release Tablet PO 10/06/23 07:59 30 mg
DAILY NATACHA Administration
Ondansetron HCl 4 mg 09/07/23 17:53
Ondansetron 4 Mg/2 Ml Vial IV 10/05/23 17:52
Q6HPRN PRN
NAUSEA/VOMITING
Prochlorperazine Edisylate 10 mg 09/07/23 17:53 09/08/23 02:24
Prochlorperazine 10 Mg/2 Ml Vial IV 10/05/23 17:52 10 mg
Q6HPRN PRN Administration
nausea
Sodium Chloride 0 flush 09/07/23 18:00
Sodium Chloride 0.9% (Flush) Syringe IV 10/05/23 17:59
PER PROTOCOL NATACHA
Sodium Chloride 0.5 ml 09/08/23 09:00 09/08/23 10:34
Nss (Pf) 10 Ml Vial For Ativan 1 Mg Dose IV 10/06/23 08:59 0.5 ml
ONCE PRN Administration
DILUENT FOR LORAZEPAM
Tramadol HCl 25 mg 09/07/23 17:53 09/08/23 08:55
Tramadol Hcl 50 Mg Tablet PO 10/05/23 17:52 25 mg
Q6HPRN PRN Administration
severe pain
Home Medications
�Medication �Instructions �Recorded
amlodipine 5 mg tablet (Norvasc) 5 mg PO DAILY #30 tabs 09/05/23
metoclopramide HCl 10 mg tablet 10 mg PO Q8HPRN PRN nausea and 09/05/23
(Reglan) vomiting #10 tabs
diphenhydramine 25 1 tab PO HSPRN PRN mild pain 09/07/23
mg-acetaminophen 500 mg tablet
(Tylenol PM Extra Strength)
ibuprofen 200 mg tablet 200 mg PO DAILYPRN PRN mild pain 09/07/23
NIH Stroke Score
Subsequent NIH Scale
Date of Subsequent NIH Scale: 09/08/23
Time of Subsequent NIH Scale: 10:00
NIH Stroke Score
Level of Consciousness: 0 - Alert
LOC Questions: 0-Answers both correctly
LOC Commands: 0-Performs both correctly
Best Horizontal Gaze: 0-Normal
Visual Whitley: 0=Normal, no visual loss
Facial Palsy: 0=Normal, symmetrical
Motor - Right Arm: 0=No drift 10 seconds
Motor - Left Arm: 0=No drift 10 seconds
Motor - Right Le-No drift 5 seconds
Motor - Left Le-No drift 5 seconds
Limb Ataxia: 0-Absent
Sensation: 0-Normal
Best Language: 0-No aphasia
Dysarthria: 0-Normal
Extinction and Inattention: 0-No abnormality
Total Score:: 0
[2023-09-08] MEDS: ATIVAN 1 MG IV (10:33)
[2023-09-08] MEDS: NSS (PRESERVATIVE FREE) 0.5 ML IV (10:34)
--- NOTE | 2023-09-08 12:10 | CM ---
CM attempted bedside meeting with pt- sleeping soundly
Call with spouse/Hui
They reside in a 2SH with 1 ASHLEY, 15 steps up to full bed and bath
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
He is independent with his ADLs
No DMEs or VN/SNF hx
PCP- Will Houston
Rx- [id number]
Discharge Disposition- home, no needs anticipated
[2023-09-08] MEDS: MAGNESIUM SULFATE 50 IV (12:15)
[2023-09-08] MEDS: NSS 1000 IV (12:16)
[2023-09-08 14:34] LABS: Glycohemoglobin (HgbA1c) 5.5 % (4.0-5.6)
[2023-09-08 15:41] LABS: HDL Cholesterol 50 mg/dl; LDL Cholesterol, Calculated 115 mg/dl; Total Cholesterol 188 mg/dl (50-199); Triglyceride 118 mg/dl (10-149); Very Low Density Lipoprotein 23 mg/dl (0-30)
[2023-09-08] MEDS: MELATONIN 5 MG PO (22:38)
[2023-09-09 03:40] VITALS: BP 130/77
[2023-09-09 07:00] VITALS: BP 146/82
[2023-09-09 07:31] LABS: Hematocrit 45.6 % (39.0-52.0); Hemoglobin 15.4 g/dL (13.0-18.0); Mean Corp Hgb Conc. 33.8 g/dL (33.0-37.0); Mean Corpuscular Hgb 30.1 pg (27.0-31.0); Mean Corpuscular Volume 89.2 fL (80.0-94.0); Mean Platelet Volume 9.8 fL (7.4-10.4); Platelet Count 178 10^3/uL (130-400); Red Blood Cell Count 5.11 10^6/uL (4.70-6.10); Red Cell Dist. Width 12.4 % (11.5-14.5); White Blood Cell Count 10.9 10^3/uL (4.8-10.8)
[2023-09-09 08:06] LABS: Blood Urea Nitrogen 32 mg/dl (9-20); Calcium 9.5 mg/dl (8.4-10.2); Carbon Dioxide 20 mmol/L (22-30); Chloride 106 mmol/L (98-107); Estimated Creatinine Clearance 57 ml/min; Glucose 95 mg/dl (70-99); Magnesium 2.1 mg/dl (1.6-2.3); Potassium 4.6 mmol/L (3.5-5.1); Sodium 136 mmol/L (135-145); eGFR > 60.00
[2023-09-09] MEDS: HEPARIN 5000 UNITS SC (08:32)
[2023-09-09] MEDS: PROCARDIA XL (EXTENDED RELEASE) 30 MG PO (08:32)
[2023-09-09] MEDS: ZESTRIL 10 MG PO (08:32)
--- NOTE | 2023-09-09 09:53 | W.DCSUMMARY ---
Discharge Summary
Discharge Data
Date of Admission: 09/07/23
Date of Discharge: 09/09/23
-
Pending Results: No
Hospital Course
73 years old male presented with headache, dizziness and blurred vision. Patient was found to have high blood pressure on arrival around 182- 193/102-113. Patient was diagnosed with hypertensive emergency. Patient had history of
gastroenteritis. He had history of nausea, vomiting, diarrhea after eating outside. He developed acute gastroenteritis with his after eating at the same place. He started to have headache and visited the emergency room 2 days before
admission when he was given Norvasc for high blood pressure and antinausea medication. He had imaging studies of the head that did not show acute stroke but showed old lacunar infarct in the left basal ganglia area. Patient reported history of
hypertension in the past and stopped taking medication after improvement in blood pressure and hypotension episode. Patient noted that his blood pressure was running high before developing headache. Patient was admitted to the hospital. Patient
was evaluated by neurologist during the hospitalization. He was started on blood pressure medications. His blood pressure started to come down slowly with improvement in headache. He had normal renal function. Echocardiogram showed normal left
ventricular size and function with ejection fraction 68%, normal right ventricular size and function with no significant valvular heart disease. Patient was treated for acute gastroenteritis with intravenous fluid and was given intravenous
magnesium. His headache subsided and he started to feel better. Patient and daughter were counseled regarding potential side effects of new medications (nifedipine and lisinopril) specially with side effects of angioedema, renal insufficiency and
hyperkalemia in relation to Lisinopril. Patient had an appointment within a week after discharge with his primary care doctor. He was advised to follow with his primary doctor and record blood pressure readings at home. Patient did not have
neurological deficits. He did not have vision problems. He remained fully oriented. He was able to tolerate diet with resolution of diarrhea. Patient did not have nausea or vomiting in hospital, no abdominal pain. Patient remained
hemodynamically stable and was discharged in a stable condition. Discharge instructions were reviewed with patient and his daughter, they verbalized understanding.
Physical Exam
General: Well Nourished and Pain
HEENT: Moist mucous membranes and Atraumatic
Respiratory: Clear; No Wheezes
Cardiac: S1/S2 and Regular Rhythm; No Murmur, Peripheral Edema or Carotid Bruits
GI: Soft and Non Tender
Genito-urinary: No costovertebral tender
Musculoskeletal: No Clubbing, No Cyanosis and No Edema
Skin: Warm and Dry
Neuro: AO x 3 and Nonfocal/grossly intact; No Slurred Speech, Facial Droop or Tremors
Psych: Calm and Intact Judgment/Insight
Total discharge time spent to see the patient on the floor, examine the patient, review data and lab results, discuss discharge plan with patient, daughter, nursing staff around 69 minutes
Discharge Plan
-
Patient Disposition: Home (Routine Discharge)
Discharge Diagnosis/Procedures: Hypertension
Acute gastroenteritis, likely food related.
Old lacunar stroke
You were seen by ICU doctor/ pulmonary and neurologist.
Echo showed Echocardiogram showed normal left ventricular size and function with ejection fraction 68%, normal right ventricular size and function with no significant valvular heart disease.
MRI brain showed no hyper intense restricted diffusion to indicate acute infarct. Moderate to large volume of patchy and confluent periventricular, subcortical, and deep white matter increased signal intensity on T2 and FLAIR. Most likely reflecting
advanced chronic microvascular white matter ischemic disease. Tiny chronic lacunar infarct at the peripheral margin of the left basal ganglia.
-You are started on new blood pressure medications:
Lisinopril: Angiotensin-converting enzyme inhibitors: potential side common effects: low blood pressure, hyperkalemia, renal injury, angioedema, dry cough.
-Nifedipine: Calcium channel arline: potential common side effects: low blood pressure, edema.
- Take aspirin ( 81 mg) to prevent strokes.
Check your blood pressure twice a day. Optimal blood pressure at this time less than 140/90. Follow with your primary care doctor and do
blood work to monitor your renal function and potassium. Your PCP may make changes to your medications according to your symptoms and blood pressure readings.
- Limit and if possible avoid use of Ibuprofen(NSAIDs) to avoid sodium retention and high blood pressure.
Make an appointment with lung doctor regarding potential sleep apnea.
Diet: As tolerated and Low Sodium
Blood Work: CBC & BMP& LFT in one week
Referrals:
Will Houston DO [Family Provider] - in one to two weeks
Coni Vora, [Active] - (4-6 weeks, PFTs)
Prescriptions:
New
nifedipine 30 mg Tablet Extended Release
30 mg PO DAILY Qty: 30 0RF
lisinopril 10 mg Tablet
10 mg PO DAILY Qty: 30 0RF
aspirin 81 mg capsule
81 mg PO DAILY Qty: 30 0RF
Continued
metoclopramide HCl [Reglan] 10 mg tablet
10 mg PO Q8HPRN PRN (Reason: nausea and vomiting) Qty: 10 0RF
Discontinued
amlodipine [Norvasc] 5 mg tablet
5 mg PO DAILY Qty: 30 2RF
ibuprofen 200 mg Tablet
200 mg PO DAILYPRN PRN (Reason: mild pain)
diphenhydramine-acetaminophen [Tylenol PM Extra Strength] 25-500 mg Tablet
1 tab PO HSPRN PRN (Reason: mild pain)
Discharge Orders:
Discharge Patient (As Directed); Ordered 09/09/23
Ordered By: Lyndon Gustafson
Discharge Date and Time
Print Language: MAORI
--- NOTE | 2023-09-09 10:35 | CM ---
Patient seen at bedside with nurse and daughter present. Patient reviewed IMM and signed form placed on chart. Patient states that he does not need supports. Patient daughter to transport home and patient insisted on walking out. CM will continue to
follow for discharge planning needs.
Plan; home with no needs
[2023-09-09 19:11] LABS: Hepatitis C Antibody Negative (Negative)
== END 2023-09-09 10:35 | disposition home or self-care (01) | DRG 305 ==
LOC: 4 WEST ACU 15:19
PROVIDERS: Emergency Medicine; ADMITTING PHYSICIAN Internal Medicine; CONSULT PHYSICIAN Psychiatry & Neurology Neurology; EMERGENCY PHYSICIAN Emergency Medicine; FAMILY PHYSICIAN Internal Medicine; OTHER PHYSICIAN Internal Medicine
DX: I16.1 Hypertensive emergency (principal); K52.9 Noninfective gastroenteritis and colitis, unspecified; I10 Essential (primary) hypertension; Z11.52 Encounter for screening for COVID-19
CPT/HCPCS: 70553; 71046; 80048; 80053; 80061; 83036; 83735; 85025; 85027; 85652; 86140; 86803; 87045; 87046; 87427; 87502; 87811; 89055; 93005; 93306; 96361; 96374; 96375; 99285; A9575